=== PATIENT | male | born 1985 | race Two or more races ===

== ENCOUNTER 2024-06-26 23:50 | Inpatient (IN) ==
[2024-06-27 00:21] LABS: Basophils # (auto) 0.02 K/uL (0.00-0.20); Basophils % (auto) 0.2 %; Eosinophils # (auto) 0.03 K/uL (0.00-0.50); Eosinophils % (auto) 0.3 %; Hematocrit (blood only) 23.2 % (42.0-52.0); Immature Granulocytes # (auto) 0.04 K/uL (0.01-0.20); Immature Granulocytes % (auto) 0.5 %; Lymphocytes # (auto) 1.27 K/uL (1.20-3.40); Lymphocytes % (auto) 14.4 %; Mean Corpuscular Hemoglobin 28.9 pg (25.0-34.0); Mean Corpuscular Hgb Conc 34.5 g/dL (32.0-36.0); Mean Corpuscular Volume 83.8 fL (80.0-100.0); Mean Platelet Volume 11.4 fL (9.4-12.4); Monocytes # (auto) 0.36 K/uL (0.11-0.59); Monocytes % (auto) 4.1 %; Neutrophils # (auto) 7.08 K/uL (1.40-6.50); Neutrophils % (auto) 80.5 %; Platelet Count 141 K/uL (130-400); RDW Coefficient of Variation 12.2 % (11.5-14.5); RDW Standard Deviation 37.3 fL (36.4-46.3); Red Blood Count 2.77 M/uL (4.70-6.10)
[2024-06-27] MEDS: PANTOprazole 40 MG/10 ML SYR IV ONE (00:23)
[2024-06-27] MEDS: FAMOTIDINE 20MG IV PUSH 20 MG/5 ML SYR IV STA (00:24)
[2024-06-27] MEDS: ONDANSETRON INJ 2 MG/ML 2 ML VIAL IV STA (00:24)
[2024-06-27] MEDS: PANTOPRAZOLE BOLUS/DRIP IV STA (00:40)
[2024-06-27 00:42] LABS: Albumin Globulin Ratio 1.6 (0.9-2); Albumin Level 3.3 gm/dl (3.4-5.0); BUN Creatinine Ratio 32.1 (10-20); Bilirubin,Total 0.3 mg/dl (0.2-1.0); Calcium 7.4 mg/dl (8.6-10.3); Creatinine Clr Calc Pharmacy 93.2 ml/min; Globulin 2.1 gm/dl (2.5-4.0); Total Protein 5.4 gm/dl (6.0-8.3)
[2024-06-27 00:48] LABS: Troponin I High Sensitivity 4.4 pg/ml (0-20)
[2024-06-27] MEDS: PANTOprazole 80 MG in DEXTROSE 5% 100 ML IV ONE (00:49)
[2024-06-27 00:58] LABS: INR 1.2 (0.9-1.1); Partial Thromboplastin Ratio 0.8; Partial Thromboplastin Time 21 Seconds (21-31); Prothrombin Time 12.4 Seconds (9.0-12.0)
[2024-06-27] MEDS: PANTOprazole 40 MG in DEXTROSE 5% MINI-B 100 ML IV SCH (01:05)
[2024-06-27] MEDS: OPTIRAY 320 100ml IV ONE (01:13)
[2024-06-27] MEDS: SODIUM CHLORIDE 0.9% 1,000 ML IV SCH ×2 (01:22)
--- NOTE | 2024-06-27 01:59 | CT Scan Report ---
EXAM: CT abd pelvis IV con only CLINICAL HISTORY: upper abd pain, gi bleed. TECHNIQUE: Contiguous axial images were obtained from the level of the diaphragm to the pubic symphysis with intravenous contrast. Coronal and sagittal reconstructions were likewise performed and indicated to increase the sensitivity for detecting clinically relevant pathology. If IV contrast material had not been administered, the likelihood of detecting abnormalities relevant to the patient's condition would have been substantially decreased. CT scan was performed according to ALARA (as low as reasonable achievable). COMPARISON: None FINDINGS: The visualized lung bases are clear. The liver is normal in size and attenuation. No focal liver lesions are seen. There is no intra or extrahepatic biliary ductal dilatation. Hepatic vasculature is patent. The gallbladder is present. The spleen, pancreas, and adrenal glands are unremarkable. The kidneys are normal in size and attenuation. There is no hydronephrosis or perinephric fat stranding. No renal calculi or renal masses are identified. The ureters are normal in caliber and no ureteral calculi are seen. The bladder is normal in contour. Pelvic viscera are unremarkable. No focal or diffuse bowel wall thickening or evidence of bowel obstruction is identified. The appendix is visualized in the right lower quadrant and appears within normal limits. Few small appendicoliths are seen. Abdominal and pelvic vasculature is patent. No adenopathy or fluid collections are seen. No aggressive appearing osseous lesions are identified. IMPRESSION: No significant abnormality detected Electronically signed by Erich Rollins 06-27-2024 01:58 AM
--- NOTE | 2024-06-27 02:19 | History & Physical Report ---
Date of Service June 27, 2024 Assessment & Plan (1) Upper GI bleed: (2) Acute blood loss anemia: (3) Hypocalcemia: Plan 39-year-old male with no significant past medical or surgical history presenting with 2 weeks of epigastric abdominal pain associate with meals followed by 3 days of black/bloody stools and 1 day of hematemesis. Patient with symptomatic anemia with fatigue, weakness and dizziness. Hemodynamically stable. No additional hematemesis or bloody bowel movements as of yet. Hgb = 8, HCT = 23.2 Patient takes Advil intermittently. Minimal alcohol use. No history of prior bleed #Upper GI bleedhemodynamically stable. Hgb = 8, HCT = 23.2. Elevated BUN = 36. Patient also has a mildly elevated INR of 1.2 as well as low calcium at 7.4 (albumin = 3.3). Suspect esophagitis, gastritis or peptic ulcer disease. Patient does endorse several weeks of pain after meals which preceded the bleeding. Admit to PCU Keep n.p.o. Maintain 2 large-bore IVs Trend CBC every 8 hours. Transfuse for ongoing bleed, symptomatic anemia or hemoglobin less than 7 Continue Protonix drip Zofran as needed for nausea Calcium gluconate x 1 g ordered GI consultation appreciated #Acute blood loss anemiasecondary to upper GI bleed. Hgb = 8, HCT = 23.2 Monitor CBC every 8 hours Transfuse for ongoing bleed, symptomatic anemia or hemoglobin less than 7 #Hypocalcemiacalcium = 7 point7.4 Check ionized calcium Calcium gluconate x 1 g ordered History of Present Illness Chief Complaint: UGIB Primary Care Provider: NO PCP José Schwartz Is a 39-year-old male with no significant past medical or surgical history presenting with acute upper GI bleed. patient reports that over the last 2 weeks he was having some epigastric discomfort associated with meals. Over the last 3 days he has been experiencing dark, black-colored stools with occasional maroon color mixed in. Last night he began having hematemesisvomiting dark, coffee-ground material with some bright red blood as well. Patient also experiencing fatigue, generalized weakness and dizziness. No report of fever, chills, chest pain, cough, shortness of breath. No abdominal pain or distention. No history of prior. No known liver disease. He drinks alcohol sparingly. Has been taking Advil intermittently for treatment of his abdominal pain. Otherwise no medications. In the ER patient afebrile, hemodynamically stable, no acute distress ER course: 1 L normal saline by EMS prior to arrival Zofran 4 mg IV Pepcid 20 mg IV Protonix bolus and drip initiated Normal saline at 125 mg/h Allergies Allergy/AdvReac Type Severity Reaction Status Date / Time No Known Allergies Allergy Verified 06/27/24 01:23 Home Medications Medication Instructions Recorded Confirmed Type No Known Home Medications 06/27/24 06/27/24 History Past Med/Surg History Problem List (Updated 06/27/24 @ 02:37 by Arti Cazares DO) Hypocalcemia Acute blood loss anemia Upper GI bleed Medical History (Updated 06/27/24 @ 02:37 by Arti Cazares DO) No significant past medical history Surgical History (Updated 06/27/24 @ 02:29 by Arti Cazares DO) History of nasal surgery Family History (Updated 06/27/24 @ 02:29 by Arti Cazares DO) Other No significant family history Social History Smoking Status: Never smoker Preferred Language: Albanian Communication Tools: IPad Feels Safe at Home: Yes Review of Systems Review of Systems: All systems reviewed & are unremarkable except as noted in HPI & below Physical Exam Physical Exam: General: patient resting comfortably, NAD, non-toxic in appearance, AA&O x 4 Skin: warm, dry, intact, no rashes or lesions HEENT: NC/AT, PERRL, EOMI, anicteric sclera, conjunctiva without injection, external ear normal to inspection and nontender, nares patent, moist mucus membranes, dentition intact, no oropharyngeal lesions, neck supple, trachea midline, no LAD, no thyromegaly, no JVD Heart: +S1/S2, regular, no m/r/g Lungs: equal air entry bilaterally, no rales/rhonchi/wheezes Abd: +BS, soft, NT/ND, no masses/organomegaly/ascites, no epigastric discomfort Ext: warm, 2+ pulses in UE/LE bilaterally, no clubbing/cyanosis or edema, 20- gauge IV right AC Neuro: nonfocal, patient AA&O x 4, speech intact, no facial droop, moving all extremities on command with equal strength 5/5 Results & Data Results & Data Vital Signs (Past 12 Hours) Vital Signs Temp Pulse Resp BP Pulse Ox O2 Del Method 06/27/24 01:18 76 16 120/60 99 Room Air 06/27/24 00:33 70 16 127/87 100 Room Air 06/27/24 00:10 78 18 112/73 100 Room Air 06/27/24 00:05 100 Room Air 06/26/24 23:57 81 06/26/24 23:53 36.6 C 84 16 116/43 L 100 Room Air Laboratory Results Laboratory Results WBC 8.80 K/ul (4.8-10.8) 06/27/24 00:04 RBC 2.77 M/uL (4.70-6.10) L 06/27/24 00:04 Hgb 8.0 g/dl (14.0-18.0) L 06/27/24 00:04 Hct 23.2 % (42.0-52.0) L 06/27/24 00:04 MCV 83.8 fL (80.0-100.0) 06/27/24 00:04 MCH 28.9 pg (25.0-34.0) 06/27/24 00:04 MCHC 34.5 g/dL (32.0-36.0) 06/27/24 00:04 RDW Std Deviation 37.3 fL (36.4-46.3) 06/27/24 00:04 RDW Coeff of Wilver 12.2 % (11.5-14.5) 06/27/24 00:04 Plt Count 141 K/uL (130-400) 06/27/24 00:04 MPV 11.4 fL (9.4-12.4) 06/27/24 00:04 Immature Gran % (Auto) 0.5 % 06/27/24 00:04 Neut % (Auto) 80.5 % 06/27/24 00:04 Lymph % (Auto) 14.4 % 06/27/24 00:04 [place] % (Auto) 4.1 % 06/27/24 00:04 Eos % (Auto) 0.3 % 06/27/24 00:04 Baso % (Auto) 0.2 % 06/27/24 00:04 Neut # (Auto) 7.08 K/uL (1.40-6.50) H 06/27/24 00:04 Lymph # (Auto) 1.27 K/uL (1.20-3.40) 06/27/24 00:04 [place] # (Auto) 0.36 K/uL (0.11-0.59) 06/27/24 00:04 Eos # (Auto) 0.03 K/uL (0.00-0.50) 06/27/24 00:04 Baso # (Auto) 0.02 K/uL (0.00-0.20) 06/27/24 00:04 Immature Gran # (Auto) 0.04 K/uL (0.01-0.20) 06/27/24 00:04 PT 12.4 Seconds (9.0-12.0) H 06/27/24 00:04 INR 1.2 (0.9-1.1) H 06/27/24 00:04 APTT 21 Seconds (21-31) 06/27/24 00:04 PTT Ratio 0.8 06/27/24 00:04 Sodium 142 mmol/L (136-145) 06/27/24 00:04 Potassium 4.0 mmol/L (3.5-5.1) 06/27/24 00:04 Chloride 113 mmol/L (98-107) H 06/27/24 00:04 Carbon Dioxide 24 mmol/L (21-32) 06/27/24 00:04 Anion Gap 5 (3-11) 06/27/24 00:04 BUN 36 mg/dl (6-23) H 06/27/24 00:04 Creatinine 1.12 mg/dl (0.6-1.4) 06/27/24 00:04 Est Cr Clr Drug Dosing 93.2 ml/min 06/27/24 00:04 eGFR 86.77 06/27/24 00:04 BUN/Creatinine Ratio 32.1 (10-20) H 06/27/24 00:04 Glucose 149 mg/dl (70-99(Fasting)) H 06/27/24 00:04 Calcium 7.4 mg/dl (8.6-10.3) L 06/27/24 00:04 Total Bilirubin 0.3 mg/dl (0.2-1.0) 06/27/24 00:04 AST 18 U/L (13-39) 06/27/24 00:04 ALT 24 U/L (7-52) 06/27/24 00:04 Alkaline Phosphatase 50 U/L (34-104) 06/27/24 00:04 Troponin I High Sens 4.4 pg/ml (0-20) 06/27/24 00:04 Total Protein 5.4 gm/dl (6.0-8.3) L 06/27/24 00:04 Albumin 3.3 gm/dl (3.4-5.0) L 06/27/24 00:04 Globulin 2.1 gm/dl (2.5-4.0) L 06/27/24 00:04 Albumin/Globulin Ratio 1.6 (0.9-2) 06/27/24 00:04 Lipase 72 U/L (11-82) 06/27/24 00:04 Blood Type O Positive 06/27/24 00:04 Antibody Screen NEGATIVE 06/27/24 00:04 Draw and Hold Cancelled 06/27/24 00:04 Impressions Abdomen/Pelvis CT 06/27/24 00:58 EXAM: CT abd pelvis IV con only CLINICAL HISTORY: upper abd pain, gi bleed. TECHNIQUE: Contiguous axial images were obtained from the level of the diaphragm to the pubic symphysis with intravenous contrast. Coronal and sagittal reconstructions were likewise performed and indicated to increase the sensitivity for detecting clinically relevant pathology. If IV contrast material had not been administered, the likelihood of detecting abnormalities relevant to the patient's condition would have been substantially decreased. CT scan was performed according to ALARA (as low as reasonable achievable). COMPARISON: None FINDINGS: The visualized lung bases are clear. The liver is normal in size and attenuation. No focal liver lesions are seen. There is no intra or extrahepatic biliary ductal dilatation. Hepatic vasculature is patent. The gallbladder is present. The spleen, pancreas, and adrenal glands are unremarkable. The kidneys are normal in size and attenuation. There is no hydronephrosis or perinephric fat stranding. No renal calculi or renal masses are identified. The ureters are normal in caliber and no ureteral calculi are seen. The bladder is normal in contour. Pelvic viscera are unremarkable. No focal or diffuse bowel wall thickening or evidence of bowel obstruction is identified. The appendix is visualized in the right lower quadrant and appears within normal limits. Few small appendicoliths are seen. Abdominal and pelvic vasculature is patent. No adenopathy or fluid collections are seen. No aggressive appearing osseous lesions are identified. IMPRESSION: No significant abnormality detected Electronically signed by Erich Rollins 06-27-2024 01:58 AM PG Care Time/CCT Total # of Minutes Spent Total Time Spent with Patient: Total time spent is greater than 50% in coordination of care (as documented) at patient's floor/unit and/or counseling patient: Coding Level of Care Code 92734 INT INP/OBS CARE 3/75MIN Diagnoses Upper GI bleed K92.2 Acute blood loss anemia D62 Hypocalcemia E83.51
--- NOTE | 2024-06-27 03:04 | Emergency Department Note ---
Impression & Plan Upper GI bleed, Acute blood loss anemia ED Provider Note NAME: FADY CLAIRE AGE: 39 SEX: Male INFORMANT: Patient and ED PROVIDER(S): Tom Chne MD CHIEF COMPLAINT: GI bleed PLAN: Disposition: Admitted Outpatient prescription management: none Referral: None MEDICAL DECISION MAKING: Patient presented because of history concerning for GI bleed. He was mildly pale but hemodynamically stable. I-STAT performed and was concerning for hemoglobin in the 7 range. Patient has no history of anemia or other concerning GI issues. Formal CBC did reveal a hemoglobin of 8. Patient and I did discuss blood transfusion along with his using the translator/interpreter. Patient did consent for blood transfusion if necessary. Given his hemodynamic stability and hemoglobin of 8 initially this was held. Patient had unremarkable labs otherwise. He was treated with Zofran, Pepcid, and Protonix bolus and drip. I did consult with Dr. Villanueva of gastroenterology who agreed with the treatment as well as a CT scan with contrast. CT imaging was performed and did not reveal any acute process. Consultation was made with Dr. Cazares of the [facility] service. Case discussed and diagnostics were reviewed. Patient was evaluated in the ER for further management. Of note after admission hemoglobin repeat was performed and was slightly lower at 7.6. Dr. Cazares was notified. Care/management discussed with: On-call GI, manager of procurement, hospitalist Level of care consideration(s): After review of the information above and other included data, I feel the patient requires escalation of care to admission Triage Nursing notes: reviewed and agree them. Vital Signs: reviewed and remarkable for no significant abnormalities Additional History obtained from: Patient's Chronic Medical/Social Conditions affecting care: none Prior/ Outside/ External records reviewed: none Differential Diagnosis: Peptic ulcer disease, variceal bleed, gastritis, diverticulosis, AVM, coagulopathy, colitis, inflammatory bowel disease, malignancy, Selena-Layne tear, esophagitis, epistaxis, fissure, hemorrhoids, as well as other pathologies. Diagnostics, independently interpreted by me: ECG: Twelve-lead ECG reveals normal sinus rhythm at 75 bpm. Early repolarization. Cardiac Monitoring: none Medical decision rules: Cardiac monitoring ordered by me: The patient was placed on continuous cardiac monitoring and observed. It revealed a normal sinus rhythm at 91 beats per minute without ectopy or evidence of dysrhythmia. Imaging studies: CT imaging of the abdomen pelvis reveals no evidence of acute pathology. No obstruction. HPI: 39 year old Male arrives for evaluation of GI bleed. This started over the last few days and is described as dark stool, black, and coffee-ground emesis. The patient also notes the following associated symptoms, upper abdominal/epigastric pain for the last 2 days. The patient has taken Pepto- Bismol for relieving factors. Current pain is rated as 0/10. Patient denies any NSAID use. No heavy alcohol use. No history of GI bleed or ulcers. No family history of the same. He noted feeling very weak and short of breath tonight going up the steps. Pt denies LOC, headache, fevers, chills, diaphoresis, visual changes, neck pain, chest pain, breathing difficulties, back pain, urinary symptoms, numbness, weakness, lymphadenopathy, rash, or other complaints.. PAST MEDICAL HISTORY: See Below, denies PAST SURGICAL HISTORY: See Below, nasal surgery SOCIAL HISTORY: See Below, lives with HOME MEDICATIONS: See Below ALLERGIES: See Below VITALS: See Below PHYSICAL EXAMINATION: GENERAL: Awake, alert, tired-appearing, in no distress HENT: Normocephalic, atraumatic. Oropharynx unremarkable. EYES: Pale conjunctiva. Sclera non-icteric. NECK: Inspection normal. Non-tender. Supple. No nuchal rigidity. FROM. No masses. RESPIRATORY: Clear to auscultation. No wheezes. No rales. Normal respiratory effort. CARDIAC: Normal rate. Normal rhythm. No murmurs. No rubs. Extremities warm and well perfused. Pulses equal. No JVD. GI: Soft, non-distended. No tenderness to palpation. No rebound or guarding. No masses. RECTAL: Deferred. MUSCULOSKELETAL: Atraumatic. Chest examination reveals no tenderness. The back is symmetrical on inspection without obvious abnormality. There is no CVA tenderness to palpation. No joint edema. LOWER EXTREMITIES: Calves are equal size bilaterally and non-tender. No edema. No discoloration. NEURO: Normal sensorium. No sensory or motor deficits noted. SKIN: No rash or jaundice noted. PROCEDURES: none CRITICAL CARE: none OBSERVATION NOTE: none Past Med/Surg History Problem List (Updated 06/27/24 @ 03:04 by Tom Chen MD) Hypocalcemia Acute blood loss anemia (Acute) Upper GI bleed (Acute) Medical History (Updated 06/27/24 @ 03:04 by Tom Chen MD) No significant past medical history Surgical History (Updated 06/27/24 @ 02:29 by Arti Cazares DO) History of nasal surgery Family History (Updated 06/27/24 @ 02:30 by Arti Cazares DO) Other No significant family history Social History Smoking Status: Never smoker Preferred Language: Wolof Communication Tools: IPad Feels Safe at Home: Yes Allergies Allergies Allergy/AdvReac Type Severity Reaction Status Date / Time No Known Allergies Allergy Verified 06/27/24 01:23 Home Meds Home Medications Medication Instructions Recorded Confirmed No Known Home Medications 06/27/24 06/27/24 Results & Data (ED) Vital Signs Vital Signs - 24 hr 06/26/24 23:53 06/26/24 23:57 06/27/24 00:05 Temperature 36.6 C Temperature Source Oral Pulse Rate 84 81 Pulse Rate from SpO2 Sensor Respiratory Rate 16 Respiratory Effort / Characteristics Non-Labored Spontaneous Respiratory Depth Normal Respiratory Pattern Regular Blood Pressure 116/43 L Blood Pressure Mean 67 Blood Pressure Position Lying Pulse Oximetry 100 100 Oxygen Delivery Method Room Air Room Air Sepsis Recent Fever Within 48 Hours No Sepsis New/Unexplained Change in Mental Status N/A Sepsis Action Taken by Nursing No Action Required 06/27/24 00:10 06/27/24 00:33 06/27/24 01:18 Temperature Temperature Source Pulse Rate 78 70 76 Pulse Rate from SpO2 Sensor Respiratory Rate 18 16 16 Respiratory Effort / Characteristics Respiratory Depth Respiratory Pattern Blood Pressure 112/73 127/87 120/60 Blood Pressure Mean 84 100 80 Blood Pressure Position Pulse Oximetry 100 100 99 Oxygen Delivery Method Room Air Room Air Room Air Sepsis Recent Fever Within 48 Hours Sepsis New/Unexplained Change in Mental Status Sepsis Action Taken by Nursing 06/27/24 02:27 06/27/24 02:30 06/27/24 02:33 Temperature Temperature Source Pulse Rate 76 71 Pulse Rate from SpO2 Sensor 75 71 Respiratory Rate Respiratory Effort / Characteristics Respiratory Depth Respiratory Pattern Blood Pressure 102/60 Blood Pressure Mean 67 Blood Pressure Position Pulse Oximetry 100 100 Oxygen Delivery Method Room Air Room Air Sepsis Recent Fever Within 48 Hours Sepsis New/Unexplained Change in Mental Status Sepsis Action Taken by Nursing 06/27/24 03:00 06/27/24 03:12 06/27/24 03:35 Temperature Temperature Source Pulse Rate 74 91 H Pulse Rate from SpO2 Sensor 75 Respiratory Rate 15 16 Respiratory Effort / Characteristics Respiratory Depth Respiratory Pattern Blood Pressure 108/60 115/56 L Blood Pressure Mean 66 Blood Pressure Position Pulse Oximetry 99 99 Oxygen Delivery Method Room Air Room Air Sepsis Recent Fever Within 48 Hours Sepsis New/Unexplained Change in Mental Status Sepsis Action Taken by Nursing Laboratory Data 06/27/24 03:06 06/27/24 00:04 Lab Results 06/27/24 06/27/24 Range/Units 00:04 03:06 WBC 8.80 (4.8-10.8) K/ul RBC 2.77 L (4.70-6.10) M/uL Hgb 8.0 L 7.6 L (14.0-18.0) g/dl Hct 23.2 L 21.7 L (42.0-52.0) % MCV 83.8 (80.0-100.0) fL MCH 28.9 (25.0-34.0) pg MCHC 34.5 (32.0-36.0) g/dL RDW Std Deviation 37.3 (36.4-46.3) fL RDW Coeff of Wilver 12.2 (11.5-14.5) % Plt Count 141 (130-400) K/uL MPV 11.4 (9.4-12.4) fL Immature Gran % (Auto) 0.5 % Neut % (Auto) 80.5 % Lymph % (Auto) 14.4 % [place] % (Auto) 4.1 % Eos % (Auto) 0.3 % Baso % (Auto) 0.2 % Neut # (Auto) 7.08 H (1.40-6.50) K/uL Lymph # (Auto) 1.27 (1.20-3.40) K/uL [place] # (Auto) 0.36 (0.11-0.59) K/uL Eos # (Auto) 0.03 (0.00-0.50) K/uL Baso # (Auto) 0.02 (0.00-0.20) K/uL Immature Gran # (Auto) 0.04 (0.01-0.20) K/uL PT 12.4 H (9.0-12.0) Seconds INR 1.2 H (0.9-1.1) APTT 21 (21-31) Seconds PTT Ratio 0.8 Sodium 142 (136-145) mmol/L Potassium 4.0 (3.5-5.1) mmol/L Chloride 113 H (98-107) mmol/L Carbon Dioxide 24 (21-32) mmol/L Anion Gap 5 (3-11) BUN 36 H (6-23) mg/dl Creatinine 1.12 (0.6-1.4) mg/dl Est Cr Clr Drug Dosing 93.2 ml/min eGFR 86.77 BUN/Creatinine Ratio 32.1 H (10-20) Glucose 149 H (70-99(Fasting)) mg/dl Calcium 7.4 L (8.6-10.3) mg/dl Total Bilirubin 0.3 (0.2-1.0) mg/dl AST 18 (13-39) U/L ALT 24 (7-52) U/L Alkaline Phosphatase 50 (34-104) U/L Troponin I High Sens 4.4 (0-20) pg/ml Total Protein 5.4 L (6.0-8.3) gm/dl Albumin 3.3 L (3.4-5.0) gm/dl Globulin 2.1 L (2.5-4.0) gm/dl Albumin/Globulin Ratio 1.6 (0.9-2) Lipase 72 (11-82) U/L Blood Type O Positive Antibody Screen NEGATIVE Draw and Hold Cancelled Administered Medications Pantoprazole Sodium 40 mg/ (Dextrose) 100 mls @ 20 mls/hr IV Q5H [facility] Stop: 07/27/24 00:29 Last Admin: 06/27/24 01:05 Dose: 8 mg/hr, 20 mls/hr Documented By: BRITTANY Sodium Chloride (Nss) 1,000 mls @ 125 mls/hr IV .Q8H [facility] Stop: 06/30/24 01:29 Last Admin: 06/27/24 01:22 Dose: 125 mls/hr Documented By: BRITTANY Discontinued Medications Sodium Chloride (Nss) 1,000 mls @ 999 mls/hr IV .Q1H1M [facility] Stop: 06/27/24 01:15 Last Admin: 06/27/24 01:22 Dose: Not Given Documented By: BRITTANY Pantoprazole Sodium (Protonix) 40 mg in 10 mls @ 5 mls/min IV NOW ONE Stop: 06/27/24 00:06 Last Admin: 06/27/24 00:40 Dose: Not Given Documented By: BRITTANY Famotidine (Pepcid 20mg Iv Push) 20 mg in 5 mls @ 2.5 mls/min IV NOW STA Stop: 06/27/24 00:16 Last Admin: 06/27/24 00:24 Dose: 2.5 mls/min Documented By: BRITTANY Pantoprazole Sodium 80 mg/ (Dextrose) 120 mls @ 480 mls/hr IV NOW ONE Stop: 06/27/24 00:29 Last Infusion: 06/27/24 01:04 Dose: Infused Documented By: Admin: 06/27/24 00:49 Dose: 480 mls/hr Documented By: BRITTANY Ioversol (Optiray 320 100ml) 100 ml IV ONCE ONE Stop: 06/27/24 01:13 Last Admin: 06/27/24 01:13 Dose: 93 ml Documented By: ANIBAL Ondansetron HCl (Ondansetron Inj 2 Mg/Ml 2 Ml Vial) 4 mg IV NOW STA Stop: 06/27/24 00:06 Last Admin: 06/27/24 00:24 Dose: 4 mg Documented By: BRITTANY Pantoprazole Sodium (Pantoprazole Bolus/Drip) 1 each IV NOW STA Stop: 06/27/24 00:16 Last Admin: 06/27/24 00:40 Dose: Not Given Documented By: BRITTANY Imaging Data Radiologist's Impression: Abdomen/Pelvis CT 06/27/24 00:58 EXAM: CT abd pelvis IV con only CLINICAL HISTORY: upper abd pain, gi bleed. TECHNIQUE: Contiguous axial images were obtained from the level of the diaphragm to the pubic symphysis with intravenous contrast. Coronal and sagittal reconstructions were likewise performed and indicated to increase the sensitivity for detecting clinically relevant pathology. If IV contrast material had not been administered, the likelihood of detecting abnormalities relevant to the patient's condition would have been substantially decreased. CT scan was performed according to ALARA (as low as reasonable achievable). COMPARISON: None FINDINGS: The visualized lung bases are clear. The liver is normal in size and attenuation. No focal liver lesions are seen. There is no intra or extrahepatic biliary ductal dilatation. Hepatic vasculature is patent. The gallbladder is present. The spleen, pancreas, and adrenal glands are unremarkable. The kidneys are normal in size and attenuation. There is no hydronephrosis or perinephric fat stranding. No renal calculi or renal masses are identified. The ureters are normal in caliber and no ureteral calculi are seen. The bladder is normal in contour. Pelvic viscera are unremarkable. No focal or diffuse bowel wall thickening or evidence of bowel obstruction is identified. The appendix is visualized in the right lower quadrant and appears within normal limits. Few small appendicoliths are seen. Abdominal and pelvic vasculature is patent. No adenopathy or fluid collections are seen. No aggressive appearing osseous lesions are identified. IMPRESSION: No significant abnormality detected Electronically signed by Erich Rollins 06-27-2024 01:58 AM Discharge Plan Visit Data Chief Complaint: GI Bleed Stated Complaint: Vomiting Blood, Dark Stool, Hypotension, Lethargic ED Provider: Tom Chen Discharge Problem: Upper GI bleed, Acute blood loss anemia Patient Disposition: Admitted As Inpatient Condition: Fair Discharge Instructions Interventions: ED Discharge Assessment Last Done: 06/27/24 03:35
[2024-06-27 03:22] LABS: Hematocrit (blood only) 21.7 % (42.0-52.0); Hemoglobin 7.6 g/dl (14.0-18.0)
[2024-06-27 04:16] LABS: iSTAT Creatinine 1.2 mg/dl (0.6-1.3); iSTAT Hemoglobin 7.1 g/dl (14.0-18.0); iSTAT Ionized Calcium 1.13 mmol/l (1.12-1.32)
[2024-06-27] MEDS ORDERED: ONDANSETRON INJ 2 MG/ML 2 ML VIAL IV PRN (04:20)
[2024-06-27] MEDS: CALCIUM GLUCONATE 1,000 MG/60 ML BAG IV STA (04:53)
[2024-06-27 08:07] LABS: BUN Creatinine Ratio 31.6 (10-20); Calcium 8.1 mg/dl (8.6-10.3); Creatinine Clr Calc Pharmacy 109.9 ml/min; Potassium 4.2 mmol/L (3.5-5.1)
[2024-06-27 08:16] LABS: INR 1.1 (0.9-1.1); Prothrombin Time 11.7 Seconds (9.0-12.0)
--- NOTE | 2024-06-27 10:27 | Gastrointestinal Consultation ---
Date of Consultation June 27, 2024 Assessment & Plan (1) Upper GI bleed: Patient with history of epigastric pain, dark stools, hematemesis, and upon evaluation was anemic. He is agreeable to EGD to further evaluate. - set up EGD for today. - continue with protonix drip. - continue to monitor hgb/hct and transfuse as needed. Supervising Physician Co-Signing Physician Notes Upper GI bleed. Couple weeks of epigastric pain. Took Advil for his epigastric discomfort. From [place]. Increased risk of H. pylori. EGD evaluate for peptic ulcer disease biopsies for H. pylori. Evaluate for risk of rebleed with potential endoscopic intervention. Risks of EGD explained through freelance interpreter/translator and his who speaks good Gabonese risks include further bleeding perforation. Informed consent obtained History of Present Illness Reason for Consultation: UGIB Requesting Physician: Arti Cazares DO Attending Physician: Joseph Cota MD, PhD History of Present Illness Patient is a 39 year old male without any significant past medical or surgical history who presented to the ED earlier this morning with a few weeks of epigastric abdominal pain associated with meals, 3 days of black stools with one episode of vomiting with hematemesis which prompted ED evaluation. Hgb was 8. He has had no further emesis since coming into the hospital and has not had further bowel movements. He reports abdominal pain feels somewhat better. He was started on a protonix drip since arrival. he reports that pain has been improved since starting this. No other GI concerns. was at bedside who aided with translation as patient does speak some Gabonese but primarily speaks Polish. Allergies Allergy/AdvReac Type Severity Reaction Status Date / Time No Known Allergies Allergy Verified 06/27/24 01:23 Home Medications Medication Instructions Recorded Confirmed Type No Known Home Medications 06/27/24 06/27/24 History Patient History Medical History (Updated 06/27/24 @ 12:37 by Brendon Gomez MD) Encounter for pre-operative examination No significant past medical history Surgical History History of nasal surgery Family History Other No significant family history Social History Smoking Status: Never smoker Hx Alcohol Use: No Hx Substance Use: No Preferred Language: Polish Communication Ability: Effective Communication Tools: IPad Electrical Equipment Assembler Required: Yes Beliefs That Will Affect Care: None Current Living Situation: Spouse Feels Safe at Home: Yes Safety Concerns: Feels Safe At This Time Assistive Devices: None Review of Systems Review of Systems: All systems reviewed & are unremarkable except as noted in HPI & below Physical Exam Constitutional: WD/WN, vitals as above Respiratory: normal respiratory effort, lungs clear to auscultation Cardiovascular: Rate/Rhythm: regular rate and regular rhythm Gastrointestinal (Abdomen): normal bowel sounds, soft, nontender, no hepat osplenomegaly Psychiatric: Orientation: alert and oriented x 3 Affect: euthymic affect Results & Data Vital Signs (Past 12 Hours) Vital Signs Temp Pulse Pulse Resp BP BP Pulse Ox 06/27/24 07:16 97.9 F 66 19 117/72 99 06/27/24 05:00 100 H 06/27/24 04:24 98.4 F 71 18 96/63 L 98 06/27/24 03:35 91 H 16 115/56 L 99 06/27/24 03:12 74 15 99 06/27/24 03:00 108/60 06/27/24 02:33 71 100 06/27/24 02:30 102/60 06/27/24 02:27 76 100 06/27/24 01:18 76 16 120/60 99 06/27/24 00:33 70 16 127/87 100 06/27/24 00:10 78 18 112/73 100 06/27/24 00:05 100 06/26/24 23:57 81 06/26/24 23:53 97.9 F 84 16 116/43 L 100 O2 Del Method 06/27/24 07:16 Room Air 06/27/24 05:00 06/27/24 04:24 Room Air 06/27/24 03:35 Room Air 06/27/24 03:12 Room Air 06/27/24 03:00 06/27/24 02:33 Room Air 06/27/24 02:30 06/27/24 02:27 Room Air 06/27/24 01:18 Room Air 06/27/24 00:33 Room Air 06/27/24 00:10 Room Air 06/27/24 00:05 Room Air 06/26/24 23:57 06/26/24 23:53 Room Air Coding Level of Care Code 58845 IN/OBS CONSULT LVL 4,60M Diagnoses Upper GI bleed K92.2
[2024-06-27 10:28] LABS: Hematocrit (blood only) 21.5 % (42.0-52.0); Hemoglobin 7.6 g/dl (14.0-18.0); Mean Corpuscular Hemoglobin 29.6 pg (25.0-34.0); Mean Corpuscular Hgb Conc 35.3 g/dL (32.0-36.0); Mean Corpuscular Volume 83.7 fL (80.0-100.0); Mean Platelet Volume 11.9 fL (9.4-12.4); Platelet Count 156 K/uL (130-400); RDW Coefficient of Variation 12.4 % (11.5-14.5); RDW Standard Deviation 37.5 fL (36.4-46.3); Red Blood Count 2.57 M/uL (4.70-6.10); White Blood Count 5.28 K/ul (4.8-10.8)
--- NOTE | 2024-06-27 10:47 | Electrocardiogram Report ---
Test Reason : Blood Pressure : */* mmHG Vent. Rate : 75 BPM Atrial Rate : 75 BPM P-R Int : 132 ms QRS Dur : 70 ms QT Int : 382 ms P-R-T Axes : 63 72 55 degrees QTcB Int : 426 ms Normal sinus rhythm ST elevation, consider early repolarization, pericarditis, or injury Normal ECG No previous ECGs available Confirmed by Amauri Almanza ([id number]) on 06/27/2024 10:47:37 AM Referred By: REFERRED SELF Confirmed By: Amauri Almanza
--- NOTE | 2024-06-27 12:37 | Anesthesiology Consultation ---
Date of Service June 27, 2024 Assessment & Plan (1) Encounter for pre-operative examination: Chart Review Chart Review: Acceptable Risk for Surgery and Patient NOT seen in Pre Admission Testing Consults Requested none History Surgery Operation Date: 06/27/24 16:55 Proposed Procedures p Esophagogastroduodenoscopy Dr. Rich Villanueva MD Height/Weight Height: 5 ft 10 in Weight: 74.5 kg Allergies Allergy/AdvReac Type Severity Reaction Status Date / Time No Known Allergies Allergy Verified 06/27/24 01:23 Medications Home Medications Medication Instructions Recorded Confirmed Last Taken No Known Home Medications 06/27/24 06/27/24 Unknown Active Medications Generic Name Dose Route Start Last Admin Trade Name Freq PRN Reason Stop Dose Admin Pantoprazole Sodium 40 mg/ 100 mls @ 20 mls/hr 06/27/24 00:30 06/27/24 10:10 Dextrose IV 07/27/24 00:29 8 mg/hr Q5H EMILIE 20 mls/hr Administration 8 MG/HR NPO Date Last Intake of Fluids: 06/26/24 Time Last Intake of Fluids: 20:00 Date Last Intake of Solids: 06/26/24 Time Last Intake of Solids: 20:00 Past Medical History Medical History (Updated 06/27/24 @ 12:37 by Brendon Gomez MD) Encounter for pre-operative examination No significant past medical history Exercise / Class Metabolic Activity 1 > 8 Run/Swim/Ski/Tennis Past Family History Family History Other No significant family history Past Surgical History Surgical History History of nasal surgery Social History Smoking Status: Never smoker Hx Alcohol Use: No Hx Substance Use: No Physical Exam Vital Signs Last Vital Signs Temp 36.7 C 06/27/24 12:30 Pulse 76 06/27/24 12:30 Resp 18 06/27/24 12:30 BP 125/74 06/27/24 12:30 Pulse Ox 100 06/27/24 12:30 O2 Del Method Room Air 06/27/24 12:30 Testing Laboratory Results 06/27/24 09:59 06/27/24 06:41 PT 11.7 Seconds (9.0-12.0) 06/27/24 06:41 INR 1.1 (0.9-1.1) 06/27/24 06:41 APTT 21 Seconds (21-31) 06/27/24 00:04 Blood Type O Positive 06/27/24 00:04 Antibody Screen NEGATIVE 06/27/24 00:04 06/27/24 00:07 POC Glucose (other) 143 H Electrocardiogram Date: 06/27/24 DICTATED BY: Amauri Almanza MD Test Reason : Blood Pressure : */* mmHG Vent. Rate : 75 BPM Atrial Rate : 75 BPM P-R Int : 132 ms QRS Dur : 70 ms QT Int : 382 ms P-R-T Axes : 63 72 55 degrees QTcB Int : 426 ms Normal sinus rhythm ST elevation, consider early repolarization, pericarditis, or injury Normal ECG No previous ECGs available Confirmed by Amauri Almanza ([id number]) on 06/27/2024 10:47:37 AM
--- NOTE | 2024-06-27 14:06 | Communication Note ---
Date of Service: June 27, 2024 EGD Multiple cratered duodenal ulcers no visible vessels no active bleeding. Multiple gastric erosions. Potentially Advil related though would need to rule out H. pylori in this gentleman from [facility]. Increased risk of that infection in [place]. Treat with PPI twice daily x 14 days. Then PPI daily. Protonix 40. Can advance diet discharge tomorrow in absence Further Bleeding.. Should avoid Advil ibuprofen any NSAID going forward. Can take acetaminophen up to maximum 4 tablets/day for his headaches.
--- NOTE | 2024-06-27 14:10 | GI REPORT ---
[facility] Patient: FADY CLAIRE : 1985 Sex at : Male Age: 39 Years Procedure: Upper GI endoscopy Date: 06/27/2024 Attending Physician: Eron Villanueva MD Referring MD: Joseph Cota MD Phd Indications: - Melena - Suspected upper gastrointestinal bleeding Medications: - Monitored Anesthesia Care Complications: - No immediate complications. Estimated Blood Loss: - Estimated blood loss was minimal. Procedure: - The egd scope was introduced through the mouth and advanced to the second part of the duodenum. - The upper GI endoscopy was accomplished without difficulty. - The patient tolerated the procedure well. Findings: - The examined esophagus was normal. - Multiple dispersed small erosions with no bleeding and no stigmata of recent bleeding were found in the gastric antrum. Biopsies were taken with a cold forceps for histology. Estimated blood loss was minimal. - Few non-bleeding cratered duodenal ulcers with no stigmata of bleeding were found in the first portion of the duodenum. Impression: - Normal esophagus. - Erosive gastropathy with no bleeding and no stigmata of recent bleeding. Biopsied. - Non-bleeding duodenal ulcers with no stigmata of bleeding. Recommendation: - Await pathology results. Treat H. pylori if present. Avoid NSAIDs. Twice daily PPI therapy for 14 days then 140 mg Protonix daily x 8 weeks. If patient is unable or unwilling to avoid NSAIDs should remain on PPI peptic ulcer prophylaxis long-term Procedure Code(s): - 97623, Esophagogastroduodenoscopy, flexible, transoral; with biopsy, single or multiple Diagnosis Code(s): - K92.1, Melena (includes Hematochezia) - K31.89, Other diseases of stomach and duodenum - K26.9, Duodenal ulcer, unspecified as acute or chronic, without hemorrhage or perforation CPT(R) - 2023 copyright [employer]. All Rights Reserved. The CPT codes, CCI edits and ICD codes generated are intended as suggestions and were generated based on input data. These codes are preliminary and upon cornice upholsterer review may be revised to meet current compliance and payer requirements. The provider is responsible for the final determination of appropriate codes, and modifiers. Eron Villanueva MD This document has been electronically signed. Note Initiated:06/27/2024 Note Completed:06/27/2024 2:09 PM \\[email or web address]\[email or web address]\[id number]
--- NOTE | 2024-06-27 14:16 | Anesthesiology Progress Note ---
Date of Service June 27, 2024 Anesthesia Post Procedure Vital Signs Vital Signs: Temp Pulse Pulse Pulse Resp BP BP 06/27/24 12:30 36.7 C 76 18 125/74 06/27/24 10:51 36.9 C 97 H 20 06/27/24 07:16 36.6 C 66 19 06/27/24 05:00 100 H 06/27/24 04:24 36.9 C 71 18 06/27/24 03:35 91 H 16 115/56 L 06/27/24 03:12 74 15 06/27/24 03:00 108/60 06/27/24 02:33 71 06/27/24 02:30 102/60 06/27/24 02:27 76 06/27/24 01:18 76 16 120/60 06/27/24 00:33 70 16 127/87 06/27/24 00:10 78 18 112/73 06/27/24 00:05 06/26/24 23:57 81 06/26/24 23:53 36.6 C 84 16 116/43 L BP Pulse Ox O2 Del Method 06/27/24 12:30 100 Room Air 06/27/24 10:51 111/69 100 Room Air 06/27/24 07:16 117/72 99 Room Air 06/27/24 05:00 06/27/24 04:24 96/63 L 98 Room Air 06/27/24 03:35 99 Room Air 06/27/24 03:12 99 Room Air 06/27/24 03:00 06/27/24 02:33 100 Room Air 06/27/24 02:30 06/27/24 02:27 100 Room Air 06/27/24 01:18 99 Room Air 06/27/24 00:33 100 Room Air 06/27/24 00:10 100 Room Air 06/27/24 00:05 100 Room Air 06/26/24 23:57 06/26/24 23:53 100 Room Air Pain Intensity Head: Pain Intensity: 8 Transfer of Care Handoff Completed per policy Notes Mental Status: alert / awake / arousable and participated in evaluation Patient Amnestic to Procedure: Yes Nausea / Vomiting: adequately controlled Pain: adequately controlled Airway Patency, RR, SpO2: stable & adequate BP & HR: stable & adequate Hydration State: stable & adequate Anesthetic Complications: no major complications apparent and Pt Satisfied with anesthetic care
[2024-06-27 14:18] VITALS: O2SAT 99
[2024-06-27] MEDS: PROPOFOL IV EMULSION 10 MG/ML 20 ML VIAL IV ONE (15:36)
[2024-06-27] MEDS: LIDOCAINE 2% 2 ML VIAL/AMP(20MG/ML) INFIL ONE (15:36)
[2024-06-27 15:41] VITALS: RESP 20; TEMP 98.2
[2024-06-27 16:52] VITALS: BP 111/69; PULSE 97
--- NOTE | 2024-06-27 17:12 | Discharge Summary ---
Discharge Summary Date of Service June 27, 2024 Principal Dx & Hospital Course #1 = Principal Diagnosis (1) Upper GI bleed: (2) Acute blood loss anemia: (3) Hypocalcemia: Plan 39 years old male with PMH of FULL CODE @ home, and headaches, treated with ibuprofen tablets (up to 2 tablets a day, maximum number of tablets, intermittently, not on a daily basis. for the past 2 weeks), who presented to [facility] on 06/26/2024 with complaints of 2 weeks of epigastric abdominal pain associated with meals, followed by 3 days of black/bloody stools and 1 day of hematemesis. Patient was subsequently admitted to the inpatient hospitalist service @ [facility] on 06/27/2024 with the following diagnoses: 1. Acute symptomatic anemia, due to acute blood loss anemia with admission Hb 8.0 g/dL (06/26/2024, 12:04am). 2. Low-normal calcium with admission ionized calcium 1.13 mmol/L (06/27/2024, 12:07am). The following medical issues were addressed while the patient remained in [facility] on 06/27/2024: #Acute symptomatic anemia, due to acute blood loss anemia with admission Hb 8.0 g/dL (06/26/2024, 12:04am) and discharge Hb 7.6 g/dL (06/27/2024, 3:06am, 9:59am). Patient remains hemodynamically stable and no recurrence of melena or hematemesis on 06/27/2024. Patient underwent diagnostic EGD (06/27/2024, 2:10pm) with GI Dr. Eron Villanueva, who reported: a. Normal esophagus. b. Erosive gastropathy with no bleeding and no stigmata of recent bleeding. Biopsied. c. Non-bleeding duodenal ulcers with no stigmata of bleeding. GI Dr. Eron Villanueva subsequently recommended that patient: 1. Await pathology results. 2. Treat H. pylori if present. 3. Avoid NSAIDS. 4. Start PPI therapy bid for 14 days, the PPI therapy once a day for 8 weeks. 5. if patient is unable or unwilling to avaoid NSAIDS, patient should remain on PPI peptic ulcer prophylaxis long-term. Patient was subsequently transitioned from NPO to clear liquid diet which he tolerated very well on 06/27/2024, and stated that he wants to go home. Patient reports that he will comply with GI Dr. Eron Villanueva's recommendations above, and that he will follow up with GI Dr. Eron Villanueva within 5 days of hospital discharge the official / final pathology results of the gastric erosion biopsies taken on 06/27/2024, 2:10pm EGD with GI Dr. Eron Villanueva. Patient was subsequently discharged back to his home on 06/27/2024 with electronic prescriptions for the following medications (see below) transmitted to his [id number] ([address] [place] [address], [place] [address]) on 06/27/2024, prior to hospital discharge home on 06/27/2024: 1. Protonix 40mg PO bid, #28 tablets (06/27/2024 - 07/03/2024), no refills. 2. Protonix 40mg PO daily, #56 tablets (07/04/2024 - 08/27/2024), no refills. Of final note, patient did not require or receive any packed RBC transfusion(s) while in [facility]. #Low-normal calcium with admission ionized calcium 1.13 mmol/L (06/27/2024, 12:07am). Patient received calcium gluconate 1g IV x 1 dose (06/27/2024, 4:53am). Subsequently, patient's serum calcium level increased with a post-supplement ionized calcium 1.20 mmol/L (, 6:41am). Admission HPI Per Admitting Provider José Schwartz Is a 39-year-old male with no significant past medical or surgical history presenting with acute upper GI bleed. patient reports that over the last 2 weeks he was having some epigastric discomfort associated with meals. Over the last 3 days he has been experiencing dark, black-colored stools with occasional maroon color mixed in. Last night he began having hematemesisvomiting dark, coffee-ground material with some bright red blood as well. Patient also experiencing fatigue, generalized weakness and dizziness. No report of fever, chills, chest pain, cough, shortness of breath. No abdominal pain or distention. No history of prior. No known liver disease. He drinks alcohol sparingly. Has been taking Advil intermittently for treatment of his abdominal pain. Otherwise no medications. In the ER patient afebrile, hemodynamically stable, no acute distress ER course: 1 L normal saline by EMS prior to arrival Zofran 4 mg IV Pepcid 20 mg IV Protonix bolus and drip initiated Normal saline at 125 mg/h Discharge Exam Constitutional General: Comfortable, coherent, cooperative. Wide awake and alert. Not confused, lethargic, or obtunded. Patient speaks in complete, fluent, and articulate sentences without pause, cough, or wheeze, with O2 sat 99% on room air (06/27/2024, 4:48pm). HEENT: Normocephalic, atraumatic. Extra-ocular muscles intact. Pupils equally round and reactive to light. No nystagmus, gaze paresis, anisocoria, miosis, mydriasis, hyphema, scleral injection, conjunctivitis, or pterygium. No otorrhea or rhinorrhea. No pharyngeal erythema, edema, or discharge. Neck: Supple, no stridor, bruit, goiter, or hepato-jugular reflux. Jugular venous pressure is estimated to be 3 cm above the sternal angle of José Miguel, which in turn, is 5 cm above the level of the right atrium; with jugular venous pressure estimated to be 8 cm, then, there is no jugular venous distention on 06/27/2024. Lymphatics: No cervical (anterior/posterior), supraclavicular, infraclavicular, axillary, epitrochlear, or inguinal adenopathy. Chest: Symmetric rise and fall with respirations. Non-tender to palpation. Lungs: Clear to auscultation and percussion. No audible expiratory wheeze, egophony, pectoriloquy, increase in tactile fremitus, or flatness/dullness to percussion at the bases. Heart: Regular rate and rhythm. S1 and S2 noted. No S3 or S4 summation gallop. No tripartite friction rub. Grade II/ early systolic murmur @ LLSB without radiation to the carotids, axilla, or back, and which remains invariant in regards to the respiratory cycle. Abdomen: Soft, non-tender, non-distended. No rebound, guarding, Chi's sign, or organomegaly. Bowel sounds auscultated in all 4 quadrants. Extremities: No clubbing, cyanosis, or edema. 2+ pedal pulses bilaterally. Skin: No decubitus ulcer, exanthem, or enanthem. Urology: No urethral discharge. No johnson catheter. Neurology: Alert and oriented in regards to person, place, time, and situation. DTR+ and symmetric. 5/5 motor strength in all 4 extremities, both proximally and distally. No pronator drift. No facial droop. No dysarthria. Psychiatry: No homicidal ideation. No suicidal ideation. No flat affect; smiles appropriately. Discharge Plan Discharge Items Patient Disposition: Home - Self-Care Reason For Visit: UGIB Discharge Diagnosis: Gastric erosions and non-bleeding duodenal ulcers (as noted on 06/27/2024 EGD, GI Dr. Eron Villanueva). Condition on Discharge: Fair Activity: Resume your previous activity Lifting: Gradually increase as tolerated Bathing: No limitations Sexual Activity: When tolerated Exercise/Sports: As tolerated Driving/Machine Use: No limitations Weightbearing: Full weightbearing Non-emergency contact: Primary Care Provider Call non-emergency contact if: you have any medication questions Follow-up/Referrals: PCP,NO [Primary Care Provider] - Diet: Heart Healthy Addtl Attending Provider Instructions: 1. See your GI Dr. Eron Villanueva in 5 days to review the results of biopsies of gastric erosions taken during today's EGD (06/27/2024). 2. Stop taking ibuprofen immediately. Do not take ibuprofen, motrin, advil, aleve, etc. Do not eat fruits or vegetables or meats as these all contain acid and can upset your gastric erosions and duodenal ulcers. 3. Take protonix 40mg PO bid x 14 days, then protonix 40mg PO daily x 8 weeks (as per GI Dr. Eron Villanueva). Pending Studies at Discharge: Yes Studies:: Biopsies of gastric erosions taken during today's EGD (06/27/2024) with GI Dr. Eron Villanueva. Stand-Alone Forms: My [employer], Smoking Cessation Medications and DC Order Prescriptions: New pantoprazole [Protonix] 40 mg tablet,delayed release (DR/EC) 40 mg PO BID 14 Days Qty: 28 0RF pantoprazole [Protonix] 40 mg tablet,delayed release (DR/EC) 40 mg PO DAILY 56 Days Qty: 56 0RF Discharge Orders: Discharge Order (Routine); Ordered 06/27/24 Ordered By: Joseph Murguia/Other Patient Handouts: GI Bleeding Causes and Tests, ED Upper GI Bleeding (Stable) Admission Data Admit Date/Time: 06/27/24 02:18 Attending Provider: Joseph Cota Admit Provider: Arti Cazares Primary Care Provider: PCP,NO Other Providers: Eron Villanueva; Arti Cazares Other Interventions: Discharge Summary Assessment (RN) Last Done: 06/27/24 16:48 Hospital Stay Data Consultations 06/27/24 02:01 ED Decision to Admit Stat 06/27/24 02:18 Consult Gastroenterology Routine Procedures Performed Operation Date: 06/27/24 16:55 Actual Procedures p EGD Biopsy Cytology - Eron Villanueva MD Diagnostic Imagining Performed 06/27/24 00:58 CT abd pelvis IV con only Stat Pending Results Patient Have Any Pending Studies at Discharge: Yes Discharge Instructions Given to Patient (Per Discharging Provider) 1. See your GI DrOlesya Villanueva in 5 days to review the results of biopsies of gastric erosions taken during today's EGD (06/27/2024). 2. Stop taking ibuprofen immediately. Do not take ibuprofen, motrin, advil, aleve, etc. Do not eat fruits or vegetables or meats as these all contain acid and can upset your gastric erosions and duodenal ulcers. 3. Take protonix 40mg PO bid x 14 days, then protonix 40mg PO daily x 8 weeks (as per GI Dr. Eron Villanueva). Total Time Total Time Spent Total Time Spent (In Minutes): 35 minutes. Of this time period, 19 minutes were spent in coordinating patient's discharge. Coding Level of Care Code 48999 INP/OBS DISCH >30 MIN Diagnoses Upper GI bleed K92.2 Acute blood loss anemia D62 Hypocalcemia E83.51
--- NOTE | 2024-07-01 08:04 | Coding Query ---
H. pylori gastritis can be added to relevant diagnoses Eron Villanueva MD PATHOLOGY To promote full compliance with coding requirements relating to patient care, physician participation is requested in all cases of human factors ergonomist uncertainty. Please assist us with the question(s) below: Please review the Pathology report and please document any relevant diagnosis(es) below: Diagnosis(es): Thank you Arthur HORAN
== END 2024-06-27 17:34 | disposition home or self-care (01) | DRG 378 ==
LOC: ED 23:50 → SUATTDRO 06-27 02:18 → 2S 06-27 02:18